=== PATIENT | female | born 1955 | race Caucasian/White ===

== ENCOUNTER 2017-10-13 12:20 | Outpatient (CLI) | payer OTHER | END 2017-10-13 12:21 | disposition home or self-care (01) | LOC: BICMAMMO 12:20 | PROVIDERS: ATTEND Obstetrics & Gynecology | DX: Z12.31 Encounter for screening mammogram for malignant neoplasm of breast (principal) | CPT/HCPCS: 77063; 77067 ==

== ENCOUNTER 2018-10-16 11:07 | Outpatient (CLI) | payer MEDICARE ==
--- NOTE | 2018-11-04 15:52 | MMO ---
Bilateral MAMMO Bilat Screen [facility]. CLINICAL HISTORY: Patient is 63 years old and is seen for screening. The patient has the following family history of breast cancer: cousin female. The patient has no personal history of cancer. VIEWS: The views performed were: bilateral craniocaudal with tomosynthesis and bilateral mediolateral oblique with tomosynthesis. FILMS COMPARED: The present examination has been compared to prior imaging studies performed at [facility] on 10/13/2017, and at [facility] on 04/21/2009, 08/06/2010, 11/26/2012, 01/14/2014, 05/17/2015 and 05/24/2016. MAMMOGRAM FINDINGS: There are scattered fibroglandular densities. There are vascular calcifications seen in both breasts. There are no suspicious masses, suspicious calcifications, or new areas of architectural distortion. IMPRESSION: A ROUTINE FOLLOW-UP MAMMOGRAM IN 1 YEAR IS RECOMMENDED. THE RESULTS OF THIS EXAM WERE SENT TO THE PATIENT. ACR BI-RADS Category 2 - Benign finding MAMMOGRAPHY NOTE: 1. A negative mammogram report should not delay a biopsy if a dominant of clinically suspicious mass is present. 2. Approximately 10% to 15% of breast cancers are not detected by mammography. 3. Adenosis and dense breasts may obscure an underlying neoplasm.
== END 2018-10-16 11:08 | disposition home or self-care (01) ==
LOC: BICMAMMO 11:07
PROVIDERS: ATTEND Obstetrics & Gynecology
DX: Z12.31 Encounter for screening mammogram for malignant neoplasm of breast (principal); Z80.3 Family history of malignant neoplasm of breast
CPT/HCPCS: 77063; 77067

== ENCOUNTER 2020-10-25 10:34 | Outpatient (CLI) | payer MEDICARE | END 2020-10-25 10:35 | disposition home or self-care (01) | LOC: BICMAMMO 10:34 | PROVIDERS: ATTEND Obstetrics & Gynecology | DX: Z12.31 Encounter for screening mammogram for malignant neoplasm of breast (principal) | CPT/HCPCS: 77063; 77067 ==

== ENCOUNTER 2021-12-28 10:46 | Outpatient (CLI) | payer MEDICARE | END 2021-12-28 10:47 | disposition home or self-care (01) | LOC: BICMAMMO 10:46 | PROVIDERS: ATTEND Obstetrics & Gynecology | DX: Z12.31 Encounter for screening mammogram for malignant neoplasm of breast (principal); Z80.3 Family history of malignant neoplasm of breast | CPT/HCPCS: 77063; 77067 ==

== ENCOUNTER 2023-05-09 09:23 | Outpatient (CLI) | payer OTHER | END 2023-05-09 09:24 | disposition home or self-care (01) | LOC: BICMAMMO 09:23 | PROVIDERS: ATTEND Obstetrics & Gynecology | DX: Z12.31 Encounter for screening mammogram for malignant neoplasm of breast (principal); Z80.3 Family history of malignant neoplasm of breast | CPT/HCPCS: 77063; 77067 ==

== ENCOUNTER 2023-09-01 06:15 | Inpatient (IN) | payer MEDICARE ==
[2023-09-01] MEDS ORDERED: Vancomycin (BATCH) 1.5 GM/300 ML BAG ONE (07:18)
[2023-09-01] MEDS ORDERED: Sodium Chloride 0.9% 100 ML ONE ×2 (07:18→09:19)
[2023-09-01] MEDS ORDERED: Tranexamic Acid 1,000 MG/10 ML VIAL ONE (07:18)
[2023-09-01] MEDS ORDERED: Midazolam HCl 2 mg/2 ml Vial ONE (08:15)
[2023-09-01] MEDS ORDERED: Bupivacaine PF 0.5% 30 ML VIAL ONE ×2 (08:15→09:03)
[2023-09-01] MEDS ORDERED: fentaNYL 50 mcg/mL 1 mL Vial ONE ×2 (08:15→12:10)
[2023-09-01] MEDS ORDERED: Bupivacaine HCl 0.5%/Epinephrine 1:200,000/PF 30 ml Vial ONE (08:55)
[2023-09-01] MEDS ORDERED: fentaNYL 50 mcg/mL 1 mL Vial SLOW IVP PRN (08:58)
[2023-09-01] MEDS ORDERED: diphenhydrAMINE 25 MG CAP PO PRN (08:58)
[2023-09-01] MEDS ORDERED: Acetaminophen 325 MG TAB PO PRN (08:58)
[2023-09-01] MEDS ORDERED: Zolpidem Tartrate 5 MG TAB PO PRN (08:58)
[2023-09-01] MEDS ORDERED: Promethazine HCl 25 MG/ML VIAL IM PRN (08:58)
[2023-09-01] MEDS ORDERED: Non-Formulary Item 1 EACH (Esomeprazole Magnesium [Nexium] 40 MG Cap) PO SCH (09:00)
[2023-09-01] MEDS ORDERED: Dexamethasone 20 MG/5 ML VIAL ONE (09:04)
[2023-09-01] MEDS ORDERED: PROPOFOL 40 ML ONE (09:04)
[2023-09-01] MEDS ORDERED: Lidocaine 1% PF 5 ML VIAL ONE (09:04)
[2023-09-01] MEDS ORDERED: Ondansetron PF 4 MG/2 ML Vial ONE (09:04)
[2023-09-01] MEDS ORDERED: CEFAZOLIN 2 GM VIAL ONE (09:18)
[2023-09-01] MEDS ORDERED: Ropivacaine 0.2% 550 ML 550 ML NERVE BLCK SCH (09:45)
[2023-09-01] MEDS ORDERED: traMADol HCl 50 MG TAB PO PRN (09:45)
[2023-09-01] MEDS ORDERED: PHENYLEPHRINE-NS 100 MCG/ML 10 ML SYRINGE ONE (09:45)
[2023-09-01] MEDS: fentaNYL 50 mcg/mL 1 mL Vial SLOW IVP PRN (13:29)
[2023-09-01] MEDS: Sodium Chloride 0.9% 1,000 ML IV SCH (13:34)
[2023-09-01] MEDS: Ferrous Gluconate 324 MG TAB PO SCH (13:44)
[2023-09-01] MEDS: Aspirin 81 mg Enteric Coated Tablet PO SCH (13:44)
[2023-09-01] MEDS: Nebivolol HCl 2.5 MG TAB PO SCH (13:45)
[2023-09-01] MEDS: Multivitamin W/ Minerals 1 TAB PO SCH (13:45)
[2023-09-01] MEDS: Levothyroxine Sodium 88 MCG TAB PO SCH (13:45)
[2023-09-01] MEDS: Senokot S 8.6-50 MG TAB PO SCH (13:45)
[2023-09-01] MEDS ORDERED: CEFAZOLIN 2 GM in Sodium Chloride 0.9% 100 ML IVPB SCH (14:00)
[2023-09-01 14:02] VITALS: BMI 32.4
[2023-09-01] MEDS: HYDROcodone/Acetaminophen 10/325 mg Tablet PO PRN (14:24)
[2023-09-01] MEDS: Ketorolac Tromethamine 30 MG (1 mL) VIAL IVP SCH (14:25)
[2023-09-01] MEDS: Cyclobenzaprine 10 MG TAB PO PRN (16:19)
[2023-09-01] MEDS: CEFAZOLIN 2 GM in Sodium Chloride 0.9% 100 ML IVPB SCH (18:10)
[2023-09-01] MEDS: Ondansetron PF 4 MG/2 ML Vial IVP PRN (20:20)
[2023-09-01] MEDS: Montelukast Sodium 10 mg Tablet PO SCH (20:22)
[2023-09-01] MEDS: Losartan 25 MG TAB PO SCH (20:22)
[2023-09-02 05:22] LABS: Hematocrit 30.7 % (36.0-47.0); Hemoglobin 9.8 g/dL (12.0-16.0); Mean Corpuscular HGB CONC 31.9 g/dL (32.0-36.0); Mean Corpuscular Hemoglobin 30.6 pg (27.0-31.0); Mean Corpuscular Volume 95.9 fl (78.0-98.0); Mean Platelet Volume 9.7 fL (7.4-10.4); Platelet Count 294 10x3/uL (130-400); RBC Distribution Width 14.6 % (11.5-14.5); White Blood Cell (WBC) Count 12.7 10x3/uL (4.8-10.8)
[2023-09-02] MEDS: Multivit, Therapeutic 1 TAB PO SCH (10:32)
[2023-09-02] MEDS: HYDROcodone/Acetaminophen 10/325 mg Tablet PO PRN (18:39)
[2023-09-03] MEDS: Multivit, Therapeutic 1 TAB PO SCH (10:26)
[2023-09-04] MEDS: traMADol HCl 50 MG TAB PO PRN (09:06)
[2023-09-04 16:31] VITALS: BP 137/76; TEMP 98
== END 2023-09-04 16:30 | disposition home or self-care (01) | DRG 470 ==
LOC: SDC 06:15 → SURG A 12:16 → INTOOBSV 09-02 10:47 → OBSVTOIN 09-02 10:47
PROVIDERS: ADMIT Orthopaedic Surgery; ATTEND Orthopaedic Surgery
PROC: 0SRD0J9 Replacement of Left Knee Joint with Synthetic Substitute, Cemented, Open Approach (ICD-10-PCS; principal; 2023-09-01)
DX: M17.12 Unilateral primary osteoarthritis, left knee (principal); I10 Essential (primary) hypertension; Z98.890 Other specified postprocedural states; Z98.51 Tubal ligation status
CPT/HCPCS: 36415; 51701; 51798; 85027; 96365; 96366; 96375; 96376; A4306; C1776; G0378; J0665; J1100; J2250; J2405; J2704; J2795; J3010; J3370; J3490; J7050

== ENCOUNTER 2023-09-05 12:46 | Inpatient (IN) | payer MEDICARE ==
[~2023-09-05 12:46] MED LIST: Iopamidol-370 76% 500 ML MDV (1 ML CHARGE) ONE
[2023-09-05 14:44] LABS: #Monocytes 0.5 thou/uL (0.11-0.59); #Neutrophils 8.6 thou/uL (1.40-6.50); %Basophils 0.4 % (0.0-1.0); %Eosinophils 0.1 % (0.0-10.0); %Lymphocytes 5.9 % (21.0-51.0); Hematocrit 33.1 % (36.0-47.0); Hemoglobin 10.1 g/dL (12.0-16.0); Mean Corpuscular HGB CONC 30.5 g/dL (32.0-36.0); Mean Corpuscular Hemoglobin 30.9 pg (27.0-31.0); Mean Corpuscular Volume 101.2 fl (78.0-98.0); Mean Platelet Volume 10.3 fL (7.4-10.4); Platelet Count 244 10x3/uL (130-400); RBC Distribution Width 14.3 % (11.5-14.5); Red Blood Cell (RBC) Count 3.27 mill/uL (4.20-5.40); White Blood Cell (WBC) Count 9.8 10x3/uL (4.8-10.8)
[2023-09-05 15:01] LABS: ALT (SGPT) 9 U/L (8-55); AST (SGOT) 19 U/L (5-34); Alkaline Phosphatase 97 U/L (40-110); Anion Gap 15 mmol/L (10-20); BUN (Urea Nitrogen) 13 mg/dL (9.8-20.1); Bilirubin, Total 0.3 mg/dL (0.2-1.2); Calc. Creatinine Clearance 0 mL/min (70-130); Calcium 8.8 mg/dL (7.8-10.44); Carbon Dioxide 21 mmol/L (23-31); Chloride 103 mmol/L (98-107); Estimated GFR 76; Glucose 115 mg/dL (80-115); Lipase 7 U/L (8-78); Magnesium 1.5 mg/dL (1.6-2.6); Potassium 3.9 mmol/L (3.5-5.1); Sodium 135 mmol/L (136-145)
[2023-09-05 15:04] LABS: Troponin I 0.038 ng/mL (< 0.028)
[2023-09-05 15:13] LABS: INR-International Normal Ratio 1.1
[2023-09-05] MEDS ORDERED: Aspirin Chewable 81 MG TAB ONE (15:27)
[2023-09-05] MEDS ORDERED: Nitroglycerin 2% Ointment 1 INCH/1 GM Packet ONE (15:27)
[2023-09-05] MEDS ORDERED: Magnesium 2 GM/50 ML BAG (IN WATER) ONE (15:27)
[2023-09-05] MEDS ORDERED: Acetaminophen 650 MG Suppository PR PRN (16:07)
[2023-09-05] MEDS ORDERED: Morphine 4 MG/ML VIAL SLOW IVP PRN (16:16)
[2023-09-05] MEDS ORDERED: Morphine 2 MG/ML VIAL SLOW IVP PRN (16:16)
[2023-09-05] MEDS ORDERED: Ondansetron PF 4 MG/2 ML Vial ONE (16:22)
[2023-09-05 22:56] VITALS: BMI 33.8
[2023-09-05] MEDS: Montelukast Sodium 10 mg Tablet PO SCH (23:11)
[2023-09-05] MEDS: Rosuvastatin 5 MG TAB PO SCH (23:11)
[2023-09-05] MEDS: Enoxaparin 100 MG (1 mL) SYRINGE SC SCH (23:11)
[2023-09-05] MEDS: Losartan 25 MG TAB PO SCH (23:11)
[2023-09-06 00:04] LABS: Troponin I 0.054 ng/mL (< 0.028)
[2023-09-06] MEDS: Levothyroxine Sodium 88 MCG TAB PO SCH (06:28)
[2023-09-06] MEDS: Ezetimibe 10 MG TAB PO SCH (08:29)
[2023-09-06] MEDS ORDERED: Regadenoson 0.4 MG/5 ML SYRINGE ONE (11:59)
[2023-09-06 17:54] LABS: #Basophils 0.1 thou/uL (0.0-0.2); #Eosinphils 0.2 thou/uL (0.0-0.7); #Monocytes 0.8 thou/uL (0.11-0.59); #Neutrophils 8.2 thou/uL (1.40-6.50); %Basophils 0.5 % (0.0-1.0); %Eosinophils 1.9 % (0.0-10.0); %Lymphocytes 13.2 % (21.0-51.0); %Monocytes 7.1 % (0.0-10.0); %Neutrophils 76.7 % (42.0-75.0); Hemoglobin 10.5 g/dL (12.0-16.0); Mean Corpuscular HGB CONC 32.8 g/dL (32.0-36.0); Mean Corpuscular Hemoglobin 31.3 pg (27.0-31.0); Mean Corpuscular Volume 95.5 fl (78.0-98.0); Mean Platelet Volume 10.4 fL (7.4-10.4); Platelet Count 433 10x3/uL (130-400); RBC Distribution Width 14.2 % (11.5-14.5); Red Blood Cell (RBC) Count 3.35 mill/uL (4.20-5.40); White Blood Cell (WBC) Count 10.7 10x3/uL (4.8-10.8)
[2023-09-06 18:28] LABS: ALT (SGPT) 10 U/L (8-55); AST (SGOT) 19 U/L (5-34); Albumin 3.4 g/dL (3.4-4.8); Alkaline Phosphatase 106 U/L (40-110); Anion Gap 15 mmol/L (10-20); BUN (Urea Nitrogen) 9 mg/dL (9.8-20.1); Bilirubin, Total 0.5 mg/dL (0.2-1.2); Calc. Creatinine Clearance 91 mL/min (70-130); Calcium 9.5 mg/dL (7.8-10.44); Carbon Dioxide 26 mmol/L (23-31); Chloride 102 mmol/L (98-107); Estimated GFR 78; Globulin 3.5 g/dL (2.4-3.5); Glucose 98 mg/dL (80-115); Magnesium 1.7 mg/dL (1.6-2.6); Phosphorus 2.3 mg/dL (2.3-4.7); Potassium 3.5 mmol/L (3.5-5.1); Protein, Total 6.9 g/dL (5.8-8.1); Sodium 139 mmol/L (136-145)
[2023-09-06] MEDS: Aspirin 81 mg Enteric Coated Tablet PO SCH (20:41)
[2023-09-06] MEDS: Acetaminophen 325 MG TAB PO PRN (20:41)
[2023-09-06] MEDS: Magnesium 2 GM/50 ML(in water) 2 GM in Premix 1 BAG IVPB SCH (23:30)
[2023-09-07] MEDS: Levothyroxine Sodium 75 MCG TAB PO SCH (06:18)
[2023-09-07] MEDS: Potassium Chloride 20 MEQ TAB PO SCH (09:37)
[2023-09-08 15:22] VITALS: BP 166/77; TEMP 98.5
== END 2023-09-08 14:36 | disposition home or self-care (01) | DRG 189 ==
LOC: SUATTDRO 12:46 → ERS 12:46 → ERHOLD 15:42 → 2NO 22:39 → OBSVTOIN 09-07 10:56 → T4-B 09-07 16:42
PROVIDERS: ADMIT Family Medicine; ATTEND Internal Medicine
DX: J96.01 Acute respiratory failure with hypoxia (principal); R07.89 Other chest pain; I10 Essential (primary) hypertension; E03.9 Hypothyroidism, unspecified; Z96.652 Presence of left artificial knee joint; E78.5 Hyperlipidemia, unspecified; T50.995A Adverse effect of other drugs, medicaments and biological substances, initial encounter; Z79.82 Long term (current) use of aspirin; Z79.899 Other long term (current) drug therapy; Z88.8 Allergy status to other drugs, medicaments and biological substances; Z98.890 Other specified postprocedural states
CPT/HCPCS: 36415; 71275; 78452; 80053; 83605; 83690; 83735; 83880; 84100; 84484; 85025; 85610; 85730; 93005; 93017; 96365; 96372; 96375; 96376; A9502; G0378; J1650; J2405; J2785; J3475; Q9967

== ENCOUNTER 2025-04-04 19:24 | Emergency (ER) | payer MEDICARE | END 2025-04-04 22:58 | disposition left against medical advice (07) | LOC: ERS 19:24 | DX: Z53.21 Procedure and treatment not carried out due to patient leaving prior to being seen by health care provider (principal) ==